=== PATIENT | female | born 1955 | race Caucasian/White ===

== ENCOUNTER 2021-01-26 14:54 | Emergency (ER) | payer OTHER ==
[~2021-01-26] VITALS: Ht 165.1 cm; Wt 56.7 kg
[~2021-01-26 14:54] MED LIST: ALPR1TAB6 PO; CALC600T PO; FERR159T3 PO; HYDR12.58 PO; HYDR200T71 PO; TRAM50TA PO; XOPENEX0.31 MG/3 IH
[2021-01-26 17:44] VITALS: BP 164/73
--- NOTE | 2021-01-26 18:17 | EKG ---
[facility] [address] [place] [address] Test Date: 2021-01-26 Test Time: 18:09:56 Pat Name: JOHN SANTA Department: Room: Gender: F [employer]ulatory [employer] Specialist: : 1955 Requested By: LORETTA SALAZAR Order Number: [id number] Reading MD: Measurements Intervals [place] Rate: 56 P: 61 NE: 170 QRS: 10 QRSD: 74 T: 33 QT: 412 QTc: 400 Interpretive Statements SINUS RHYTHM LOW LIMB LEAD VOLTAGE NO SPECIFIC ECG ABNORMALITIES RI6.02 No previous ECG available for comparison
--- NOTE | 2021-01-26 18:24 | RAD ---
XR CHEST 1V History: Reason: Chest pain, PUI / Spl. Instructions: / History: Comparison: None. Findings: No consolidation or pleural effusion. Normal heart size. No pneumothorax. Impression: 1. No acute cardiopulmonary process. Electronically signed by: Lee Claudio DO (01/26/2021 6:22 PM) [facility] [place]
--- NOTE | 2021-01-26 18:52 | PHYS DOC ---
Past Medical History Additional Past Medical Histor: DDD/CHRONIC BACK PAIN Past Surgical History: Appendectomy, Cholecystectomy, Hysterectomy, Tonsillectomy, Other Additional Past Surgical Histo: D&C'S,EXP SURG,CARPAL TUNNEL Smoking Status: Never Smoker Alcohol Use: None General Adult EDM: Chief Complaint: MULTIPLE COMPLAINTS HPI: HPI: Patient is a 65-year-old female who presents to the emergency department with chief complaint of sudden onset of shortness of breath with chest pain since 9 AM this morning. Patient states she works from home and noticed shortness of breath and sternal chest pain that increases when she takes a deep breath, stating that it radiates through to her back. Patient reports it feels as if somebody is stabbing me with a knife. Patient rates her pain a consistent 9 out of 10 that increases to a 10 out of 10 when taking a deep breath. Patient denies nausea, vomiting, abdominal pain, states she has had 2 loose stools today, denies any blood in her stool. Patient reports loss of taste, loss of smell, generalized body aches and fatigue. Headaches. Patient reports "I am having all the symptoms of the COVID-19 virus "patient reports her primary care physician Dr. Stratton sent her here to be admitted to the hospital. Patient denies diaphoretic episodes, increased thirst or increased urination. Denies vaginal discharge, rashes to her vagina, increased urination, urinary burning, or other urinary tract infection type signs and symptoms. Patient denies any other physical complaints or physical concerns. Patient reports she has completed the COVID-19 virus vaccination series in September of this year [employer]. Review of Systems: Review of Systems: 14 body systems of review of systems have been reviewed. See HPI for pertinent positives and negative responses, otherwise all other systems are negative, nonpertinent or noncontributory. Constitutional: Negative except as outlined in HPI above. Skin: Negative except as outlined in HPI above. Eyes: Negative except as outlined in HPI above. HENT: Negative except as outlined in HPI above. Respiratory: Negative except as outlined in HPI above. Cardiovascular: Negative except as outlined in HPI above. GI: Negative except as outlined in HPI above. : Negative except as outlined in HPI above. Musculoskeletal: Negative except as outlined in HPI above. Integument: Negative except as outlined in HPI above. Neurologic: Negative except as outlined in HPI above. Endocrine: Negative except as outlined in HPI above. Lymphatic: Negative except as outlined in HPI above. Psychiatric: Negative except as outlined in HPI above. Heart Score: C/O Chest Pain: No Risk Factors: Risk Factors: DM, Current or recent (<one month) smoker, HTN, HLP, family history of CAD, obesity. Risk Scores: Score 0 - 3: 2.5% MACE over next 6 weeks - Discharge Home Score 4 - 6: 20.3% MACE over next 6 weeks - Admit for Clinical Observation Score 7 - 10: 72.7% MACE over next 6 weeks - Early Invasive Strategies Allergies: Allergies: Allergies Coded Allergies Type Severity Reaction Last Updated Verified Penicillins Allergy Intermediate Rash 12/20/13 Yes Physical Exam: PE: Constitutional: Well developed, well nourished, no acute distress, non-toxic appearance. 65-year-old female in no apparent distress. HENT: Normocephalic, atraumatic. Oropharynx moist, pink, no deep tissue infectious process appreciated, no lymphadenopathy of the head or neck appreciated Eyes: Conjunctiva normal, no discharge. Neck: Normal range of motion, no stridor. Cardiovascular: No cyanosis appreciated, distal cap refill less than 2 seconds. Heart sounds 1 S2 to auscultation. Bradycardic rate at 56 bpm during physical exam Lungs & Thorax: Patient is in no respiratory distress, no audible adventitious lung sounds appreciated. Lung sounds clear to auscultation all lung bustillos. Normal work of breathing Abdomen: Nontender, no abnormalities noted. Skin: Warm, dry, no erythema, no rash. Back: No tenderness, no deformities. Extremities: No tenderness, no cyanosis, no clubbing, ROM intact, no edema. Neurologic: Alert and oriented X 3, normal motor function, normal sensory function, no focal deficits noted. Psychologic: Affect normal, judgement normal, mood normal. Current Patient Data: Vital Signs: Vital Signs Date Time Temp Pulse Resp B/P (MAP) Pulse Ox O2 Delivery O2 Flow Rate FiO2 01/26/21 17:44 98.0 67 17 164/73 98 Room Air 98.0 EKG: EKG: EKG performed at 1809 by ED nursing staff shows a sinus bradycardia without other ectopy, DE interval 0.170, QTc interval 0.400, no acute STEMI, no ACS, no acute ischemia appreciated, EKG interpreted by ED attending physician Dr. Shelley. Radiology/Procedures: Radiology/Procedures: PATIENT: JOHN SANTA ACCOUNT: [id number] : 1955 LOCATION: ER AGE: 65 SEX: F EXAM STATUS: REG ER ORD. PHYSICIAN: LORETTA SALAZAR APRN REASON: Chest pain, PUI PROCEDURE: CHEST AP ONLY XR CHEST 1V History: Reason: Chest pain, PUI / Spl. Instructions: / History: Comparison: None. Findings: No consolidation or pleural effusion. Normal heart size. No pneumothorax. Impression: 1. No acute cardiopulmonary process. Electronically signed by: Lee Claudio DO (01/26/2021 6:22 PM) [facility] Course & Med Decision Making: Course & Med Decision Making Pertinent Labs and Imaging studies reviewed. (See chart for details) 65-year-old female, vital signs reviewed, presents to the emergency department with chief complaint that her primary care physician Dr. Mauri Stratton wants her to be admitted. Patient is reporting COVID-19 virus type signs and symptoms. Patient's physical examination unremarkable, patient is nontoxic in appearance and in no apparent distress. However will order cardiorespiratory work-up with COVID-19 testing. Urinalysis assay. Patient's labs unremarkable, her urine is not infected, COVID-19 testing along with D-dimer and lactic acid still pending at this time. 2024, medications ordered for sternal chest pain had not been given related to ED staffing, medications were given by me, patient continues to report a 9 out of 10 sternal chest pain with radiation through to back with deep breathing. Repeat vital signs taken by me as follows, oral temperature 98.1, respiratory rate 16 and unlabored, pulse rate 57, blood pressure 135/62, room air O2 sat 97%, patient remains nontoxic in appearance and in no apparent distress. Labs still pending, patient aware. Patient's lab work unremarkable, lactic acid within normal limits, D-dimer within normal limits, chest pain is unlikely related to cardiorespiratory process or pulmonary emboli related to normal labs, normal EKG, chest x-ray within normal limits and without acute findings, patient's pain did reduce to a 3 out of 10 after anti-inflammatory medications given. Called and discussed patient case and ED work-up with patient's primary care physician Dr. Mauri Stratton who recommended patient call him 1st thing in the morning to see how he is doing otherwise strict return to ER for worsening symptoms or other concerns. Discussed Dr. Banks's recommendations with patient who is amendable to ED discharge planning, states that she is ready to go home as she is feeling much better now and is relieved that her symptoms and ED work- up did not find any concerning findings of heart attack or pneumonia. Patient is aware that COVID-19 testing is still pending however unlikely related to normal vital signs and equivocal symptoms. Discussed with the patient all findings and diagnostic testing as well as the need to follow-up with their primary care provider for further evaluation and treatment or return to the ED if any new or worsening symptoms. Strict return precautions were also discussed at length, the patient voiced understanding and agreement with the discharge planning. The patient was nontoxic in appearance, in no apparent distress, and hemodynamically stable at the time of disposition. Dragon Disclaimer: Dragjeni Disclaimer: This electronic medical record was generated, in whole or in part, using a voice recognition dictation system. Departure Departure Impression: Primary Impression: Chest pain of unknown etiology Additional Impression: Person under investigation for COVID-19 Disposition: HOME / SELF CARE / HOMELESS Admitting Physician: Mauri Stratton Condition: GOOD Referrals: MAURI STRATTON MD (PCP) Patient Instructions: Chest Pain (Nonspecific), Chest Wall Pain Additional Instructions: You were seen today in the emergency department for chest pain and your primary care physician Dr. Mauri Stratton recommended you come to the emergency department for a work-up of your symptoms, and extensive cardiorespiratory work-up along with a urinalysis assay and COVID-19 virus lab testing was performed today in the emergency department. Your emergency department examination and work-up is reassuring, there were no abnormal findings in the lab or the x-ray that was taken today. There were no signs of infectious process, pneumonia, or heart attack. However as we discussed you're still having some mild chest pain which may be related to a musculoskeletal process, with this, Dr. Stratton requests that you call him 1st thing in the morning to discuss your symptoms otherwise if you have increasing symptoms or other concerns please return to the emergency department immediately. Thank you for visiting our Emergency Department. It was a pleasure taking care of you today in the emergency department and we appreciate you trusting us with your care. If any additional problems come up don't hesitate to return to visit us. Please follow up with your primary care provider so they can plan additional care if needed and know about the problem that you had. If symptoms worsen come back to the Emergency Department. Any concerning symptoms that start such as chest pain, shortness of air, weakness or numbness on one side of the body, running high fevers or any other concerning symptoms return to the ER. EMERGENCY DEPARTMENT GENERAL DISCHARGE INSTRUCTIONS Thank you for coming to [facility] Emergency Department (ED) today and trusting us with you care. We trust that you had a positive experience in our Emergency Department. If you wish to speak to the department management, you may call the Director at [phone]. YOUR FOLLOW UP INSTRUCTIONS ARE FOLLOWS: 1. Do you have a private Doctor? If you do not have a private doctor, please ask for a resource list of physicians or clinics that may be able to assist you with follow up care. 2. The Emergency Physicain has interpreted your x-rays. The X-Ray specialist will also review them. If there is a change in the findings, you will be notified in 48 hours when at all possible. 3. A lab test or culture has been done, your results will be reviewed and you will be notified if you need a change in treatment. ADDITIONAL INSTRUCTIONS AND INFORMATION: 1. Your care today has been supervised by a physician who is specially trained in emergency care. Many problems require more than one evaluation for a complete diagnosis and treatment. We recommend that you schedule your follow up appointment as recommended to ensure complete treatment of you illness or injury. If you are unable to obtain follow up care and continue to have a problem, or if your condition worsens, we recommend that you return to the ED. 2. We are not able to safely determine your condition over the phone nor are we able to give sound medical advice over the phone. For these safety reasons, if you call for medical advice we will ask you to come to the ED for further evaluation. 3. If you have any questions regarding these discharge instructions please call the ED at [phone]. SAFETY INFORMATION: In the interest of safety, wellness, and injury prevention; we encourage you to wear your sealbelt, if you smoke; quite smoking, and we encourage family to use a protective helmet for bicycling and other sporting events that present an increased risk for head injury. IF YOUR SYMPTOMS WORSEN OR NEW SYMPTOMS DEVELOP, OR YOU HAVE CONCERNS ABOUT YOUR CONDITION; OR IF YOUR CONDITION WORSENS WHILE YOU ARE WAITING FOR YOUR FOLLOW UP APPOINTMENT; EITHER CONTACT YOUR PRIMARY CARE DOCTOR, THE PHYSICIAN WHOSE NAME AND NUMBER YOU WERE GIVEN, OR RETURN TO THE ED IMMEDIATELY. LORETTA SALAZAR APRN Jan 26, 2021 18:52
[2021-01-26 18:57] LABS: BASO # 0.1 x10^3/uL (0.0-0.2); BASO % 1 % (0-3); EOS # 0.1 x10^3/uL (0.0-0.7); EOS % 1 % (0-3); HEMATOCRIT 39.7 % (36.0-47.0); HEMOGLOBIN 13.6 g/dL (12.0-15.5); LYMPH # 2.4 x10^3/uL (1.0-4.8); LYMPH % 40 % (24-48); MEAN CORPUSCULAR HEMOGLOBIN 31 pg (25-35); MEAN CORPUSCULAR HGB CONC 34 g/dL (31-37); MEAN CORPUSCULAR VOLUME 91 fL (79-100); MONO # 0.6 x10^3/uL (0.0-1.1); MONO % 11 % (0-9); NEUT # 2.9 x10^3/uL (1.8-7.7); NEUT % 47 % (31-73); PLATELET COUNT 260 x10^3/uL (140-400); RED BLOOD COUNT 4.38 x10^6/uL (3.50-5.40); RED CELL DISTRIBUTION WIDTH 12.9 % (11.5-14.5); WHITE BLOOD COUNT 6.1 x10^3/uL (4.0-11.0)
[2021-01-26 19:00] LABS: BILIRUBIN,URINE NEGATIVE (NEG); CLARITY,URINE CLEAR; COLOR,URINE YELLOW; NITRITE,URINE NEGATIVE (NEG); PH,URINE 7.5 (<5.0-8.0); PROTEIN,URINE NEGATIVE (NEG-TRACE); UROBILINOGEN,URINE 0.2 mg/dL (0.2 mg/dL)
[2021-01-26 19:10] LABS: CALCIUM 9.1 mg/dL (8.5-10.1); CREATININE 0.8 mg/dL (0.6-1.0); GFR 72.2; POTASSIUM 4.2 mmol/L (3.5-5.1)
[2021-01-26 19:14] LABS: ALBUMIN 3.8 g/dL (3.4-5.0); ALBUMIN/GLOBULIN RATIO 1.4 (1.0-1.7); MAGNESIUM 2.4 mg/dL (1.8-2.4); PHOSPHORUS 3.2 mg/dL (2.6-4.7); TOTAL BILIRUBIN 0.3 mg/dL (0.2-1.0); TOTAL PROTEIN 6.6 g/dL (6.4-8.2)
[2021-01-26] MEDS ORDERED: ACETAMINOPHEN 325 MG TABLET. PO ONE (19:15)
[2021-01-26] MEDS ORDERED: KETOROLAC 30 MG/ML VIAL. IVP ONE (19:15)
[2021-01-26 19:33] LABS: BACTERIA,URINE 0 /HPF (0-FEW); RBC,URINE 0 /HPF (0-2)
--- NOTE | 2021-01-27 12:21 | NUR ---
IP: Attempted to contact pt concerning covid results. No answer, left a voicemail to return the call.
--- NOTE | 2021-01-28 09:12 | NUR ---
IP: Informed pt of negative covid test. Pt verbalized understanding.
== END 2021-01-26 21:20 | disposition home or self-care (01) ==
LOC: ER 14:54
DX: R07.89 Other chest pain (principal); Z20.822 Contact with and (suspected) exposure to COVID-19; R06.02 Shortness of breath; G89.29 Other chronic pain; Z88.0 Allergy status to penicillin
CPT/HCPCS: 36415; 71045; 80053; 81001; 82553; 83605; 83735; 84100; 84484; 85025; 85379; 87086; 93005; 96374; 99285; J1885; U0003; U0005